=== PATIENT | female | born 1995 | race Caucasian/White ===

== ENCOUNTER → 2016-12-13 | Outpatient (REF) ==
[~2016-12-13] MED LIST: CEFTIN500 MG PO; CIPRO 500MG TA500 MG PO; PYRIDIUM200 M1 PO; ZOFRAN 4MG T4 MG/TAB PO
== END ==
LOC: WSOH 11:44
DX: Z02.1 Encounter for pre-employment examination (principal)

== ENCOUNTER → 2020-05-03 | Outpatient (CLI) | payer BC ==
[~2020-05-03] MED LIST changes: +CARAFATE 1GM1 G PO; +PROTONIX 40MG T40 MG PO; +ZOFRAN ODT4 MG PO
== END ==
LOC: COL.RAD 06:32
DX: R10.12 Left upper quadrant pain (principal)
CPT/HCPCS: A9537; J2805